=== PATIENT | male | born 1995 | race African-American/Black ===

== ENCOUNTER 2022-06-04 11:05 | Inpatient (IN) | payer MEDICAID, SELFPAY ==
[2022-06-04] VITALS (27 sets, daily range): BP systolic 99–146; BP diastolic 45–95; PULSE 57–128; RESP 16–39; TEMP 36.1–39.1; O2SAT 92–100; BMI 22.9
--- NOTE | ~2022-06-04 | XR_ITS ---
XR chest 2V 06/08/2022 10:51 Indication: Pneumonia follow-up Procedure: AP and lateral views of the chest Comparison: 06/04/2022 Findings: Significant improvement of bilateral airspace disease. There is residual left perihilar inf iltrates. No pleural effusion or pneumothorax. No acute osseous abnormality. Right lung clear. Impression: 1: Near-complete resolution of bilateral perihilar airspace disease, likely resolving pneumonia or ed juancho. Reviewed, dictated and finalized at location A. Impression: 1: Near-complete resolution of bilateral perihilar airspace disease, likely res olving pneumonia or edema.
--- NOTE | ~2022-06-04 | XR_ITS ---
Portable chest x-ray Comparison: None Clinical History: Shortness of breath Findings: There is mild groundglass pulmonary disease probably centrally/in the perihilar regions. N o pleural effusion or pneumothorax. Cardiomediastinal silhouette is stable. Bones and soft tissues a re unremarkable. Impression: Mild central groundglass pulmonary disease. Correlate for atypical infection. Pulmonary edema less li huy given patient age. Reviewed, dictated and finalized at location . Impression: Mild central groundglass pulmonary disease. Correlate for atypical infection. P ulmonary edema less likely given patient age.
--- NOTE | ~2022-06-04 | CT_ITS ---
EXAMINATION: CTA chest PE protocol DATE: 06/04/2022 14:26 INDICATION: Tachycardia. Shortness of breath. TECHNIQUE: Computed tomography angiography (CTA) of the chest was performed with 100 mL Omnipaque-350 intravenous contrast timed to evaluate the pulmonary arteries. Coronal maximum intensity projection 3D-reconstructions were created by the technologist. Automated exposure control and iterative reconst ruction technique were employed. The dose-length product was 258.34 mGy-cm. COMPARISON: Chest single view 06/04/2022 FINDINGS: There are groundglass opacities in all lobes. There are airspace opacities in the lower lob es and lingula. No pleural effusion. The heart size is normal. No pericardial effusion. There is no p ulmonary embolus. The bones are unremarkable. IMPRESSION: 1. No pulmonary embolus. 2. Diffuse lung disease, consistent with atypical pneumonia versus pulmonary edema. Reviewed, dictated and finalized at location A. IMPRESSION: 1. No pulmonary embolus. 2. Diffuse lung disease, consistent with atypical pneumonia versus pulmonary ed juancho.
--- NOTE | 2022-06-04 11:51 | ECG_ITS ---
Measurements Intervals [place] Rate: 122 P: 56 NH: 164 QRS: 55 QRSD: 89 T: 37 QT: 283 QTc: 404 Interpretive Statements SINUS TACHYCARDIA ABNORMAL ECG NO PREVIOUS ECG AVAILABLE FOR COMPARISON Electronically Signed On 06-04-2022 12:52:23 CDT by Danial Schumacher D.O.
--- NOTE | 2022-06-04 12:04 | PC.NURSE ---
Patient from walking to the wheelchair to the bed was 84% on room air. Patient placed on 4L and is currently 96%.
[2022-06-04 12:38] LABS: Basophils Percent Auto 0.2 % (0.2-1.2); Hemoglobin 11.2 g/dL (14.0-18.0); Immature Granulocyte Absolute 0.03 K/mm3 (0.00-0.031); Immature Granulocyte Percent A 0.3 % (0-0.5); Lymphocytes Absolute Auto 2.64 K/mm3 (0.9-3.2); Lymphocytes Percent Auto 29.3 % (18.3-44.2); Mean Corpuscular HGB Conc 33.9 g/dl (32-36); Mean Corpuscular Hemoglobin 25.9 pg (26-34); Mean Corpuscular Volume 76.2 fl (80-100); Mean Platelet Volume 9.6 fl (7.4-10.4); Monocytes Absolute Auto 0.3 K/mm3 (0.1-0.6); Monocytes Percent Auto 3.4 % (2.6-8.5); Neutrophils Percent Auto 66.8 % (45.5-73.1); Platelet Count Result 396 k/mm3 (150-375); Red Blood Count 4.33 M/mm3 (4.6-6.20); Red Cell Distribution Width 13.4 % (11.5-14.5)
[2022-06-04 12:44] LABS: Target Cells 1+ (NORMAL)
[2022-06-04 12:45] LABS: Schistocytes None Seen (NORMAL); Stomatocytes 1+ (NORMAL)
[2022-06-04 12:47] LABS: Alanine Aminotransferase 23 U/L (6-50); Alkaline Phosphatase 57 U/L (38-126); Anion Gap 8 mmol/L (8-16); Aspartate Amino Transferase 77 U/L (17-59); Bilirubin,Total 1.2 mg/dL (0.2-1.3); Blood Urea Nitrogen 14 mg/dL (9-20); Calcium 8.8 mg/dL (8.4-10.2); Carbon Dioxide 23 mmol/L (22-30); Chloride 97 mmol/L (98-107); Estimated CRCL calculation 108 ml/min; Estimated Glomerular Filt Rate > 60; Glucose 98 mg/dL (65-110); Potassium 3.6 mmol/L (3.4-5.0); Sodium 128 mmol/L (137-145)
[2022-06-04] MEDS: SODIUM CHLORIDE 0.9% IV 1,000 ML 999 ML IV CONT (12:51)
--- NOTE | 2022-06-04 13:05 | ED.SOB ---
HPI - SOB/Dyspnea General Chief Complaint: Shortness of Breath/Dyspnea <Violeta Saldaña MD - Last Filed: 06/08/22 15:29> Stated Complaint: SOB <Violeta Saldaña MD - Last Filed: 06/08/22 15:29> Time Seen by Provider: 06/04/22 12:09 <Violeta Saldaña MD - Last Filed: 06/08/22 15:29> History of Present Illness HPI Narrative: Patient is a 27-year-old male presenting with shortness of breath. Patient states that for the last 3 weeks he has had increasingly progressive shortness of breath with cough. He states it hurts to take a big breath. States he is concerned that he is dehydrated. He has been unable to drink much. States that he gets very short of breath just walking to his bathroom. Also reports several weeks of diarrhea. No vomiting. No abdominal pain, dysuria, leg swelling, numbness or weakness, headaches. <Violeta Saldaña MD - Last Filed: 06/08/22 15:29> Patient is a 27-year-old male presenting with shortness of breath. Patient states that for the last 3 weeks he has had increasingly progressive shortness of breath with cough. He states it hurts to take a big breath. States he is concerned that he is dehydrated. He has been unable to drink much. States that he gets very short of breath just walking to his bathroom. Also reports several weeks of diarrhea. No vomiting. No abdominal pain, dysuria, leg swelling, numbness or weakness, headaches. <Nohemi Schultz PA-C - Last Filed: 06/04/22 17:12> Related Data Home Medications: Home Medications Medication Instructions Recorded Confirmed No Home Medications 06/04/22 06/04/22 <Violeta Saldaña MD - Last Filed: 06/08/22 15:29> Allergies/Adverse Reactions: Allergies Allergy/AdvReac Type Severity Reaction Status Date / Time No Known Allergies Allergy Verified 06/04/22 12:33 <Violeta Saldaña MD - Last Filed: 06/08/22 15:29> Review of Systems Review of Systems: All systems reviewed & are unremarkable except as noted in HPI and below <Violeta Saldaña MD - Last Filed: 06/08/22 15:29> [facility] Past Medical History Medical History: Medical History (Updated 06/08/22 @ 14:11 by Violeta Saldaña MD) No significant past medical history <Violeta Saldaña MD - Last Filed: 06/08/22 15:29> Surgical History Surgical History: Surgical History (Updated 06/05/22 @ 00:04 by Nohemi Schultz PA-C) No history of previous surgery <Violeta Saldaña MD - Last Filed: 06/08/22 15:29> Family History Family History: Family History Other Family history non-contributory <Violeta Saldaña MD - Last Filed: 06/08/22 15:29> Social History Social History: Social History (Updated 06/05/22 @ 00:05 by Nohemi Schultz PA-C) Social History: Surrogate medical decision maker: Sumit Gonzales, sister. Code status: Full code. Smoking status: Current some day smoker Additional smoking assessment comments: Smokes a few cigarettes a day. Alcohol intake: never Substance use: never Substance use type: does not use Lack of Transportation: YES Lack of Food: Never True Current Housing: I Have Housing Concerned About Future Housing: No Difficulty Paying Gas/Electric Bills: No Difficulty Paying for Meds: No Currently Unemployed: No Education: High School Diploma/GED Difficulty w/ Childcare or Family Care: No Additional living arrangements comments: Lives with sister and her family in the [facility]. 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 Spiritual care concerns: No <Violeta Saldaña MD - Last Filed: 06/08/22 15:29> Exam Narrative: GENERAL: ill appearing, in no acute distress, very pleasant and cooperative HEAD: Normocephalic, atraumatic. EYES: PERRLA and EOMI. ENT: Nares clear, no rhinorrhea or epistaxis. Mucous membranes dry NECK: Supple. CHEST: cr
[2022-06-04] MEDS: PIPERACILLIN/TAZOBACTAM SOD 4.5 GM in SODIUM CHLORIDE 0.9% IV 100 ML 200 ML IVPB (13:15)
--- NOTE | 2022-06-04 13:19 | PC.NURSE ---
Patient asked if this RN could call his boss and gave verbal permission to give information about patient being at hospital.
--- NOTE | 2022-06-04 13:34 | PC.NURSE ---
Patient weaned down to 2L O2 via nasal canula. patient o2 sat at 98%
[2022-06-04 14:06] LABS: Troponin I < 0.012 ng/mL (0.000-0.034)
[2022-06-04 14:09] LABS: Lactic Acid Reflex 1.2 mmol/L (0.7-2.0)
[2022-06-04 14:39] LABS: Influenza A QL RT-PCR Negative (Negative); Influenza B QL RT-PCR Negative (Negative); SARS-CoV-2 RNA PCR Negative
--- NOTE | 2022-06-04 15:02 | PC.NURSE ---
patient given a sandwich and water per verbal from Dr Saldaña
[2022-06-04 15:27] LABS: Appearance Urine Clear (Clear); Bacteria Urine None Seen /hpf; Bilirubin Urine Negative (Negative); Blood Urine Negative (Negative); Color Urine Yellow (Yellow); Glucose Urine UA Negative (Negative); Ketones Urine Negative (Negative); Leukocyte Esterase Ur Negative LEU/UL (Negative); Need Manual Microscopic Reviewed; Nitrate Urine Negative (Negative); Non Pathogenic Casts 0-2; Protein Urine 1+ mg/dL (Negative); RBC Urine 0-2 /hpf (0-2); Squamous Epithelial Cell Urine None seen /hpf (Few); Urobilinogen Urine 0.2 mg/dL (<2.0); WBC Urine 0-5 /hpf
[2022-06-04 15:29] LABS: Add Urine Microscopic? YES; Specific Grav Ur 1.042 (1.001-1.035)
[2022-06-04 16:27] LABS: Troponin I < 0.012 ng/mL (0.000-0.034)
--- NOTE | 2022-06-04 17:15 | PM.IMHP ---
H&P: HPI History of Present Illness Date/Time: 06/04/22 17:15 Chief Complaint: Cough and shortness of breath. Narrative: This is a pleasant, previously healthy 27-year-old male who presented to the emergency department via private vehicle for evaluation of cough and shortness of breath. Patient provides the following history. He has not been feeling well for 3 weeks with cough productive of clear phlegm, pleuritic chest pain, dyspnea on exertion, decreased appetite, nausea, and diarrhea. He has lost about 10 lb in the last several weeks due to poor oral intake. He denies sweats, chills, did not think he had a fever though his temperature was 102.3? on arrival to the ED. He has no known sick contacts and he denies recent travel. He lives in a home with 4 other family members, none of whom are sick. He denies pet exposures and drinks city water. He has not noticed blood or mucus in the stool. He denies vomiting. He has no known exposure to HIV and he has not been sexually active for several years. Prior to that he was in a sexually relationship with a male. He was febrile on arrival as detailed above. With ambulation his SpO2 dropped to the low 80s and he is currently on 3 L nasal cannula. Pertinent labs include a WBC count of 9.0, hemoglobin 11.2, hematocrit 33.0, MCV 76.2, sodium 128, potassium 3.6, chloride 97, BUN 14, creatinine 1.00, lactic acid 1.2, total bilirubin 1.2, AST 77, ALT 23, alkaline phosphatase 57. He was negative for influenza and COVID. Chest x-ray shows findings of possible atypical infection. CTA of the chest showed no evidence of PE but did note diffuse lung disease consistent with atypical pneumonia versus pulmonary edema. He is being admitted in this setting for further treatment and evaluation. Review of Systems Review of Systems: Twelve systems were reviewed and are negative except for as per HPI. [facility] Past Medical History Medical History (Updated 06/05/22 @ 00:10 by Nohemi Schultz PA-C) No significant past medical history Surgical History Surgical History (Updated 06/05/22 @ 00:04 by Nohemi Schultz PA-C) No history of previous surgery Family History Family History Other Family history non-contributory Social History Social History (Updated 06/05/22 @ 00:05 by Nohemi Schultz PA-C) Social History: Surrogate medical decision maker: Sumit Gonzales, sister. Code status: Full code. Smoking status: Current some day smoker Additional smoking assessment comments: Smokes a few cigarettes a day. Alcohol intake: never Substance use: never Substance use type: does not use Lack of Transportation: YES Lack of Food: Never True Current Housing: I Have Housing Concerned About Future Housing: No Difficulty Paying Gas/Electric Bills: No Difficulty Paying for Meds: No Currently Unemployed: No Education: High School Diploma/GED Difficulty w/ Childcare or Family Care: No Additional living arrangements comments: Lives with sister and her family in the [facility]. 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 Spiritual care concerns: No Meds Home Medications and Allergies Home Medications Medication Instructions Recorded Confirmed Type No Home Medications 06/04/22 06/04/22 History Allergies Allergy/AdvReac Type Severity Reaction Status Date / Time No Known Allergies Allergy Verified 06/04/22 12:33 Vital Signs Vital Signs - 24 hr 06/04/22 11:52 06/04/22 12:04 06/04/22 12:05 Temperature 102.3 F H Pulse Rate 94 119 H 121 H Respiratory Rate 20 27 H 23 H Blood Pressure 133/82 146/95 H Pulse Oximetry 94 97 97 Oxygen Delivery Room Air Oxygen Flow Rate 06/04/22 12:15 06/04/22 12:24 06/04/22 12:25 Temperature Pulse Rate 123 H 128 H 128 H Respiratory Rate 30 H 31 H Blood Pressure 144/89 H Pulse Oximetry 96 96 Oxygen Delivery Oxygen Flow
--- NOTE | 2022-06-04 17:51 | PC.NURSE ---
This patient, Jitendra Camarillo, was admitted to [facility] Surg Room 309-01. Patient/family oriented to hospital policies and general routines including ID bracelet, bed and alarms, visiting hours, pain management, procedures, bathroom and other care routines, personal items, smoking policy, room service/diet, and visiting hours. Information on how to activate the Rapid Response Team has been discussed. Patient/Family are encouraged to report perceived risks to care and to ask questions if they do not understand what they are told or what they should do.
[2022-06-04 18:57] LABS: Immature Reticulocyte Fraction 8.4 % (3.0-15.9); Reticulocyte Hemoglobin Conten 25.8 pg (28.2-35.7); Reticulocytes Absolute 0.03 B/L (32.2-175.7)
[2022-06-04 19:27] LABS: Troponin I < 0.012 ng/mL (0.000-0.034)
[2022-06-04 20:45] LABS: Folic Acid 6.4 ng/mL (2.76->20)
[2022-06-04 21:39] LABS: HAV RESULT Negative (Negative); Hepatitis B Core IgM Result Negative (Negative); Hepatitis B Surface Antigen Negative (Negative)
[2022-06-04 21:51] LABS: Hepatitis C Virus Antibody Negative (Negative)
[2022-06-04 22:03] LABS: Iron 21 ug/dL (49-181); Percent Iron Saturation 9 % (20-50)
[2022-06-04 22:28] LABS: HIV 1/2 Ab P24 Ag 263; HIV 1/2 Ab P24 Ag Result Reactive (Negative)
[2022-06-04 23:20] LABS: HIVc Retest 1 257
[2022-06-04 23:34] LABS: HIVc Retest 2 248
[2022-06-05 00:21] LABS: Free T4 Free Thyroxine Reflex 1.01 ng/dL (0.78-2.19)
[2022-06-05 01:21] LABS: Total Triiodothyronine (T3) 0.72 NG/ML (0.97-1.69)
[2022-06-05 06:00] VITALS: BP 97/53; PULSE 103; RESP 18; TEMP 37.6; O2SAT 92
[2022-06-05 06:41] LABS: Hematocrit 27.8 % (42.0-52.0); Hemoglobin 9.7 g/dL (14.0-18.0); Mean Corpuscular HGB Conc 34.9 g/dl (32-36); Mean Corpuscular Hemoglobin 26.2 pg (26-34); Mean Corpuscular Volume 75.1 fl (80-100); Mean Platelet Volume 9.8 fl (7.4-10.4); Platelet Count Result 342 k/mm3 (150-375); Red Cell Distribution Width 13.3 % (11.5-14.5); White Blood Count 6.2 K/mm3 (4.5-10.0)
[2022-06-05 07:08] LABS: Alanine Aminotransferase 18 U/L (6-50); Albumin Level 3.3 g/dL (3.5-5.1); Alkaline Phosphatase 44 U/L (38-126); Anion Gap 4 mmol/L (8-16); Aspartate Amino Transferase 60 U/L (17-59); Bilirubin,Total 0.8 mg/dL (0.2-1.3); Blood Urea Nitrogen 7 mg/dL (9-20); Calcium 7.8 mg/dL (8.4-10.2); Carbon Dioxide 22 mmol/L (22-30); Chloride 98 mmol/L (98-107); Estimated CRCL calculation 139 ml/min; Estimated Glomerular Filt Rate > 60; Glucose 83 mg/dL (65-110); Magnesium 1.8 mg/dL (1.6-2.3); Potassium 3.3 mmol/L (3.4-5.0); Sodium 124 mmol/L (137-145)
[2022-06-05 13:16] VITALS: BMI 23.4
[2022-06-05 14:00] VITALS: BP 122/70; PULSE 103; RESP 30; TEMP 37.3; O2SAT 94
--- NOTE | 2022-06-05 15:51 | PM.IMPN ---
Progress Note: A&P Assessment and Plan (1) Sepsis: Code(s): A41.9 - Sepsis, unspecified organism Status: Acute Assessment and Plan: Present on admission with tachycardia, fever and hypoxia related to pneumonia. Fever curve has improved. Tachycardia has improved as well. Tachycardia also may have been related in part to dehydration. Continue treatment as mentioned below. (2) Multifocal pneumonia: Code(s): J18.9 - Pneumonia, unspecified organism Status: Acute Assessment and Plan: The patient presents with cough and shortness of breath. CTA chest showing diffuse disease worse in the LLL. Doubt pulmonary edema and clinically more indicative for infectious etiology. Rocephin and Azithr started. Advance Rocephin to 2gm daily. HIV Ab positive so Bactrim IV added. Sputum ordered. BCx NGTD. He feels better. Concern for PJP is high so will add Prednisone per guidelines. Pulmonary consult. (3) HIV antibody positive: Code(s): Z21 - Asymptomatic human immunodeficiency virus [HIV] infection status Status: Acute Assessment and Plan: HIV antibodies positive. Confirmatory test pending. Follow up on final results. Patient was informed. Hepatitis panel negative. Check RPR. (4) Hypoxia: Code(s): R09.02 - Hypoxemia Status: Acute Assessment and Plan: Patient hypoxic on admission. Related to atypical pneumonia. Wean O2 as tolerated. (5) Hyponatremia: Code(s): E87.1 - Hypo-osmolality and hyponatremia Status: Acute Assessment and Plan: Na 128 that has dropped to 124. Probably SIADH from his lung disease. Could also be dehydrated. Will check urine Na. (6) Microcytic anemia: Code(s): D50.9 - Iron deficiency anemia, unspecified Status: Acute Assessment and Plan: Iron studies noted. B12 level low end of normal. B12 IM once. Hgb low but stable. Follow (7) Dehydration: Code(s): E86.0 - Dehydration Status: Acute Assessment and Plan: As above. Start IV fluids if Urine na low. Subjective Date/time seen: 06/05/22 15:51 Interval history: 27yo healthy male here for couagh and SOB and found to have PNA with hypoxia. HIV screen was positive. He is now having hemoptysis. No chest pain but does hurt to take a deep breath. SOB much better. Cough improved. No pedal edema or calf pain. Exam Narrative: Tm 102.3 99.6 97/53 103 18 92% 4L Gen - NARD Chest - diffuse inspiratory crackles, nml RR CV - RRR S1/S2 Abd - Soft, NT/ND, Positive BS Ext - No pedal edema Psych - Nml mood and affect Skin - Warm and dry. tinea pedis Objective Data Vital Signs Vital Signs: Vital Signs - 24 hr 06/04/22 18:01 06/04/22 17:30 06/04/22 21:16 Temperature 97.5 F L 96.9 F L Pulse Rate 85 57 L Respiratory Rate 22 H 16 Blood Pressure 99/63 L 102/58 L Pulse Oximetry 95 96 92 Oxygen Delivery Nasal Cannula Oxygen Flow Rate 4 06/05/22 06:00 Temperature 99.6 F Pulse Rate 103 H Respiratory Rate 18 Blood Pressure 97/53 L Pulse Oximetry 92 Oxygen Delivery Oxygen Flow Rate Intake/Output Intake/Output: Intake & Output 06/02/22 06/03/22 06/04/22 06/05/22 23:59 23:59 23:59 23:59 Intake Total 2190 4183.2 Output Total 900 Balance 2190 3283.2 Meds/Results Medications: Active Medications Generic Name Dose Route Start Last Admin Trade Name Freq PRN Reason Stop Dose Admin Acetaminophen 650 mg 06/05/22 00:12 Acetaminophen 325 Mg Tablet PO Q6H PRN Mild Pain (1-3) or Fever Hydrocodone Bitart/Acetaminophen 1 tab 06/05/22 00:12 Hydrocodone/Acetaminophen (*Crx) 5-325 Mg Tablet PO Q6H PRN Pain Rated 4-6 Albuterol 2 puff 06/05/22 00:12 Albuterol Sulfate (*Sp) Aerosol 1 Puff INHALATION QIDRT PRN Shortness Of Breath Trimethoprim/Sulfamethoxazole 516.6 mls @ 258.3 mls/hr 06/05/22 00:35 06/05/22 12:39 16.6 ml/ Dext
[2022-06-05] MEDS: CYANOCOBALAMIN INJ 1,000 MCG/ML VIAL 1000 MCG IM (17:07)
[2022-06-05] MEDS: POTASSIUM CHLORIDE 20 MEQ TABLET 40 MEQ PO (17:07)
--- NOTE | 2022-06-05 17:10 | PM.CNPUL ---
Assessment and Plan Assessment and plan (1) AIDS (acquired immune deficiency syndrome): Code(s): B20 - Human immunodeficiency virus [HIV] disease Status: Acute Assessment and Plan: He has had HIV 5 years, has diffuse pneumonia, and treatment has been expanded to cover Pneumocystis jiroveci as well as the usual organisms that everyone gets- Strep, H flu, Moraxella, Mycoplasma; he has O2 requirement, so the steroids will help. Continue O2, tobacco cessation; he smokes so little, may be more psychological than physiological addition. He is not having tobacco withdrawal symptoms. Bronchodilators. Urine antigens are pending. I don't have anything to add at this point. (2) Multifocal pneumonia: Code(s): J18.9 - Pneumonia, unspecified organism Status: Acute Assessment and Plan: see above. History of Present Illness History of Present Illness Consult date: 06/05/22 Requesting physician: Raul Huerta MD Chief complaint: Pneumonia Narrative: NEW CONSULT: Jitendra Camarillo is a 27-year-old man admitted with fever, cough and shortness of breath. His temperature in the ED was 102.3?. He has had HIV for 5 years, not on treatment. He has had a month of cough, shortness of breath with chest discomfort with exertion. He developed diarrhea 2 weeks ago. He has had nasal congestion, thick white sputum. He denies wt loss, hx of thrush, hx of pneumonias or respiratory infections, hemoptysis. He has not been admitted to a hospital since his diagnosis of HIV. HIs HIV screen was positive, confirmatory test sent, but says he has been positive for 5 years. WBC was 6.2 normal, has anemia, H/H 9.7/27.8. MCV 75. CD4 pending. With the (+) HIV, antibiotic coverage was extended with IV Bactrim in addition to Rocephin He has no intimate partner at present, says that he stays to himself. He has not been treated for HIV, did not know where to go. 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 Tobacco: He smokes 2 cigarettes a day, started 2 years ago. Lives with his sister Paul. He is the ninth of 17 children, both parents are alive, [employer]. Mother has asthma. FH: Mother has asthma. DATA * 06/04/2022 CXR Mild central groundglass pulmonary disease. Correlate for atypical infection. Pulmonary edema less likely given patient age. * 06/04/2022 CTA : No pulmonary embolus. Diffuse lung disease, consistent with atypical pneumonia versus pulmonary edema. He has most of his infiltrate in the LLL. Review of Systems Review of Systems: All systems reviewed & are unremarkable except as noted in HPI and below [facility] Past Medical History Medical History (Updated 06/05/22 @ 17:57 by Caty Blanco MD) No significant past medical history Surgical History Surgical History (Updated 06/05/22 @ 00:04 by Nohemi Schultz PA-C) No history of previous surgery Family History Family History Other Family history non-contributory Social History Social History (Updated 06/05/22 @ 00:05 by Nohemi Schlutz PA-C) Social History: Surrogate medical decision maker: Sumit Gonzales, sister. Code status: Full code. Smoking status: Current some day smoker Additional smoking assessment comments: Smokes a few cigarettes a day. Alcohol intake: never Substance use: never Substance use type: does not use Lack of Transportation: YES Lack of Food: Never True Current Housing: I Have Housing Concerned About Future Housing: No Difficulty Paying Gas/Electric Bills: No Difficulty Paying for Meds: No Currently Unemployed: No Education: High School Diploma/GED Difficulty w/ Childcare or Family Care: No Additional living arrangements comments: Lives with sister and he
[2022-06-05] MEDS: predniSONE 20 MG TABLET 40 MG PO (17:16)
[2022-06-05 19:44] VITALS: PULSE 106; RESP 15
[2022-06-05 19:55] VITALS: PULSE 106; PULSE 110; RESP 15; RESP 18; O2SAT 90
[2022-06-05 20:00] VITALS: PULSE 104; RESP 15; O2SAT 99
[2022-06-05] MEDS: cefTRIAXone 2 GM/NS 100 ML 2 GM/100 ML BAG IVPB (21:06)
[2022-06-05 22:04] LABS: Creatinine Urine 57.7 mg/dL
[2022-06-05 22:05] LABS: Sodium Urine Random 26 meq/L
[2022-06-05 22:08] VITALS: BP 123/68; PULSE 107; RESP 16; TEMP 37.2; O2SAT 99
[2022-06-06] VITALS (16 sets, daily range): BP systolic 111–116; BP diastolic 60–76; PULSE 76–104; RESP 14–18; TEMP 36.1–36.4; O2SAT 90–96
[2022-06-06 06:52] LABS: Hematocrit 30.2 % (42.0-52.0); Hemoglobin 10.3 g/dL (14.0-18.0); Immature Granulocyte Absolute 0.01 K/mm3 (0.00-0.031); Immature Granulocyte Percent A 0.2 % (0-0.5); Lymphocytes Absolute Auto 1.14 K/mm3 (0.9-3.2); Lymphocytes Percent Auto 27.7 % (18.3-44.2); Mean Corpuscular HGB Conc 34.1 g/dl (32-36); Mean Corpuscular Hemoglobin 25.6 pg (26-34); Mean Corpuscular Volume 75.1 fl (80-100); Mean Platelet Volume 9.4 fl (7.4-10.4); Monocytes Absolute Auto 0.1 K/mm3 (0.1-0.6); Monocytes Percent Auto 2.7 % (2.6-8.5); Neutrophils Absolute Auto 2.9 K/mm3 (1.3-6.7); Neutrophils Percent Auto 69.4 % (45.5-73.1); Platelet Count Result 388 k/mm3 (150-375); Red Blood Count 4.02 M/mm3 (4.6-6.20); Red Cell Distribution Width 13.4 % (11.5-14.5); White Blood Count 4.1 K/mm3 (4.5-10.0)
[2022-06-06 07:14] LABS: Alanine Aminotransferase 21 U/L (6-50); Albumin Level 3.4 g/dL (3.5-5.1); Alkaline Phosphatase 47 U/L (38-126); Anion Gap 4 mmol/L (8-16); Aspartate Amino Transferase 70 U/L (17-59); Bilirubin,Total 0.6 mg/dL (0.2-1.3); Blood Urea Nitrogen 6 mg/dL (9-20); CRP 6.6 mg/dL (<1.0); Calcium 8.4 mg/dL (8.4-10.2); Carbon Dioxide 25 mmol/L (22-30); Chloride 105 mmol/L (98-107); Estimated CRCL calculation 123 ml/min; Estimated Glomerular Filt Rate > 60; Glucose 130 mg/dL (65-110); Potassium 3.7 mmol/L (3.4-5.0); Sodium 134 mmol/L (137-145)
[2022-06-06 07:25] LABS: Monoscreen Negative (Negative); Negative Monotest Control Negative (Negative); Positive Monotest Control Positive (Positive)
[2022-06-06] MEDS: predniSONE 20 MG TABLET 40 MG PO ×2 (08:54→17:30)
[2022-06-06] MEDS: CYANOCOBALAMIN 1,000 MCG TABLET 1000 MCG PO (08:54)
--- NOTE | 2022-06-06 10:52 | PM.IMPN ---
Progress Note: A&P Assessment and Plan (1) Sepsis: Code(s): A41.9 - Sepsis, unspecified organism Status: Acute Assessment and Plan: Present on admission with tachycardia, fever and hypoxia related to pneumonia. Fever has resolved. Tachycardia has improved as well. Sepsis symptoms resolving. Continue treatment as mentioned below. (2) Multifocal pneumonia: Code(s): J18.9 - Pneumonia, unspecified organism Status: Acute Assessment and Plan: The patient presents with cough and shortness of breath. CTA chest showing diffuse lung disease worse in the LLL. Doubt pulmonary edema and clinically more indicative for infectious etiology. Rocephin and Azithro started. HIV positive so Bactrim IV added. Sputum pending. BCx NGTD. He feels better and O2 requirement improved. Concern for PJP is high so will add Prednisone per guidelines. Pulmonary consult. Contineu current treatment plan. (3) HIV antibody positive: Code(s): Z21 - Asymptomatic human immunodeficiency virus [HIV] infection status Status: Acute Assessment and Plan: patient admits that he is HIV positive. He has not undergone treatment. CD4 count pending. Hepatitis panel negative. RPR pending. he will need to follow-up with [facility] after discharge. (4) Hypoxia: Code(s): R09.02 - Hypoxemia Status: Acute Assessment and Plan: Patient hypoxic on admission. Related to atypical pneumonia. Better. Wean O2 as tolerated. (5) Hyponatremia: Code(s): E87.1 - Hypo-osmolality and hyponatremia Status: Acute Assessment and Plan: Na 128 that has dropped to 124. Probably related to dehydration. Urine Na 26 with low FENa. Serum Na better at 134 related to him self-hydrating. 10 points in 24 hours probably okay. Push free water. Will monitor. (6) Microcytic anemia: Code(s): D50.9 - Iron deficiency anemia, unspecified Status: Acute Assessment and Plan: Iron studies noted. B12 level low end of normal. B12 IM once. Hgb low but stable. Continue oral b12. Follow (7) Dehydration: Code(s): E86.0 - Dehydration Status: Acute Assessment and Plan: Resolving. He is eating well. Follow Subjective Date/time seen: 06/06/22 10:52 Interval history: 27yo healthy male here for couagh and SOB and found to have PNA with hypoxia. HIV screen was positive. Feeling much better. No further hemoptysis.No pain with coughing. Sputum clear. Eating okay. He does admit now that he is HIV+ and was diagnosed about 5 years ago. He has not been on treatment. Exam Narrative: AF 97.0 111/73 82 17 94% 1L Gen - NARD Chest - bilateral lower lung field inspiratory crackles, nml RR CV - RRR S1/S2 Abd - Soft, NT/ND, Positive BS Ext - No pedal edema Psych - Nml mood and affect Skin - Warm and dry. tinea pedis. dried slightly raised patch right lateral thigh Objective Data Vital Signs Vital Signs: Vital Signs - 24 hr 06/05/22 14:00 06/05/22 19:44 06/05/22 19:55 Temperature 99.1 F Pulse Rate 103 H 106 H 110 H Respiratory Rate 30 H 15 15 Blood Pressure 122/70 Pulse Oximetry 94 Oxygen Delivery Oxygen Flow Rate Fraction of Inspired Oxygen 06/05/22 19:55 06/05/22 22:08 06/06/22 01:47 Temperature 98.9 F Pulse Rate 106 H 107 H 102 H Respiratory Rate 18 16 16 Blood Pressure 123/68 Pulse Oximetry 90 99 Oxygen Delivery Nasal Cannula Oxygen Flow Rate 3 Fraction of Inspired Oxygen 32 06/06/22 01:53 06/05/22 20:00 06/06/22 04:39 Temperature 97.0 F L Pulse Rate 104 H 104 H 83 Respiratory Rate 15 15 18 Blood Pressure 111/73 Pulse Oximetry 99 96 Oxygen Delivery Nasal Cannula Oxygen Flow Rate 3 Fraction of Inspired Oxygen 32 06/06/22 07:58 06/06/22 07:55 06/06/22 08:15 Temperature Pulse Rate 77 82 Respiratory Rate 17 17 Blood Pressure Pulse Oximetry 94 Oxygen Delivery Nasal Cannula O
[2022-06-06] MEDS: ENOXAPARIN 40 MG/0.4 ML SYRINGE SUB-Q (11:38)
--- NOTE | 2022-06-06 13:30 | PM.PNPUL ---
Progress Note: A&P Assessment and Plan (1) AIDS (acquired immune deficiency syndrome): Code(s): B20 - Human immunodeficiency virus [HIV] disease Status: Acute Assessment and Plan: He has had HIV 5 years, has diffuse pneumonia, and treatment has been expanded to cover Pneumocystis jiroveci as well as the usual organisms that everyone gets- Strep, H flu, Moraxella, Mycoplasma; he has O2 requirement, so the steroids will help. Continue O2, tobacco cessation; he smokes so little, may be more psychological than physiological addition. He is not having tobacco withdrawal symptoms. Bronchodilators. Urine antigens are pending. I don't have anything to add at this point. (2) Multifocal pneumonia: Code(s): J18.9 - Pneumonia, unspecified organism Status: Acute Assessment and Plan: see above. Subjective Date/time seen: 06/06/22 13:30 Interval history: Hospital follow up: 27-year-old man admitted with fever, cough and shortness of breath. His temperature in the ED was 102.3?. He has had HIV for 5 years, not on treatment. He has had a month of cough, shortness of breath with chest discomfort with exertion. He developed diarrhea 2 weeks ago. He has had nasal congestion, thick white sputum. He denies wt loss, hx of thrush, hx of pneumonias or respiratory infections, hemoptysis. He has not been admitted to a hospital since his diagnosis of HIV.? HIs HIV screen was positive, confirmatory test sent, but says he has been positive for 5 years. WBC was 6.2 normal, has anemia, H/H 9.7/27.8. MCV 75. CD4 pending. With the (+) HIV, antibiotic coverage was extended with IV Bactrim in addition to Rocephin. He has no intimate partner at present, says that he stays to himself.? He has not been treated for HIV, did not know where to go. 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 Tobacco: He smokes 2 cigarettes a day, started 2 years ago. Lives with his sister Paul. He is the ninth of 17 children, both parents are alive, [facility]. Mother has asthma. FH: Mother has asthma. 06/06/22 O2 need improved, weaned to 1 L/min. DATA * 06/04/2022 CXR??Mild central groundglass pulmonary disease. Correlate for atypical infection. Pulmonary edema less likely given patient age. *? 06/04/2022? CTA : No pulmonary embolus. ? Diffuse lung disease, consistent with atypical pneumonia versus pulmonary edema. He has most of his infiltrate in the LLL. Exam Narrative: GEN: Alert, oriented, not in distress. He is on 4 L/min. HEENT: pupils are equal, EOMI, symmetrical face; oral membranes moist, missing 2 upper teeth from a skateboard accident 2018. Mallampati II airway. White coating on tongue. NECK: Trachea is midline CHEST: Equal air entry, symmetric excursion, crackles diffusely bilaterally. No wheezes. CV: Regular S1S2 no m/g/r ABD : (+) bowel sounds Extremities : no clubbing; he has a patch of white raised plaque over right lateral thigh about 5 cm, not pruritic. No edema. No skin lesions to suggest Kaposi sarcoma. Dry white tinea soles of feet and toes. PSYCH: normal thought and speech Objective Data Vital Signs Vital Signs: Vital Signs - 24 hr 06/05/22 14:00 06/05/22 19:44 06/05/22 19:55 Temperature 37.3 C Pulse Rate 103 H 106 H 110 H Respiratory Rate 30 H 15 15 Blood Pressure 122/70 Pulse Oximetry 94 Oxygen Delivery Oxygen Flow Rate Fraction of Inspired Oxygen 06/05/22 19:55 06/05/22 22:08 06/06/22 01:47 Temperature 37.2 C Pulse Rate 106 H 107 H 102 H Respiratory Rate 18 16 16 Blood Pressure 123/68 Pulse Oximetry 90 99 Oxygen Delivery Nasal Cannula Oxygen Flow Rate 3 Fraction of Inspired Oxygen 32 06/06/22 01:53 06/05/22 20:00 06/06/22 04:39 Temperature 36.1 C L Pulse Rate 104 H 104 H 83 Resp
[2022-06-06 15:56] LABS: Rapid Plasma Reagin Reactive (NonReactive)
[2022-06-06] MEDS: cefTRIAXone 2 GM/NS 100 ML 2 GM/100 ML BAG IVPB (20:01)
[2022-06-07] VITALS (13 sets, daily range): BP systolic 117–125; BP diastolic 68–72; PULSE 75–101; RESP 14–18; TEMP 36.3–36.6; O2SAT 91–97
[2022-06-07 04:01] LABS: Legionella pneumophila Ag Ur Not Detected (Not Detected)
[2022-06-07 07:29] LABS: Basophils Percent Auto 0.2 % (0.2-1.2); Hematocrit 29.2 % (42.0-52.0); Hemoglobin 10.1 g/dL (14.0-18.0); Immature Granulocyte Absolute 0.02 K/mm3 (0.00-0.031); Immature Granulocyte Percent A 0.5 % (0-0.5); Lymphocytes Absolute Auto 1.33 K/mm3 (0.9-3.2); Lymphocytes Percent Auto 31.9 % (18.3-44.2); Mean Corpuscular HGB Conc 34.6 g/dl (32-36); Mean Corpuscular Hemoglobin 25.8 pg (26-34); Mean Corpuscular Volume 74.7 fl (80-100); Mean Platelet Volume 9.8 fl (7.4-10.4); Monocytes Absolute Auto 0.2 K/mm3 (0.1-0.6); Neutrophils Absolute Auto 2.6 K/mm3 (1.3-6.7); Neutrophils Percent Auto 62.4 % (45.5-73.1); Platelet Count Result 398 k/mm3 (150-375); Red Blood Count 3.91 M/mm3 (4.6-6.20); Red Cell Distribution Width 13.5 % (11.5-14.5); White Blood Count 4.2 K/mm3 (4.5-10.0)
[2022-06-07] MEDS: CYANOCOBALAMIN 1,000 MCG TABLET 1000 MCG PO (09:02)
[2022-06-07] MEDS: ENOXAPARIN 40 MG/0.4 ML SYRINGE SUB-Q (09:03)
[2022-06-07] MEDS: predniSONE 20 MG TABLET 40 MG PO ×2 (09:03→17:16)
[2022-06-07 10:18] LABS: Target Cells 1+ (NORMAL)
[2022-06-07 10:21] LABS: Anisocytosis 1+ (NORMAL); Poikilocytosis 1+ (NORMAL); Schistocytes Rare (NORMAL)
[2022-06-07 10:22] LABS: Hypochromasia 1+ (NORMAL)
--- NOTE | 2022-06-07 10:26 | PM.IMPN ---
Progress Note: A&P Assessment and Plan (1) Sepsis: Code(s): A41.9 - Sepsis, unspecified organism Status: Acute Assessment and Plan: Present on admission with tachycardia, fever and hypoxia related to pneumonia. Fever has resolved. Tachycardia has resolved as well. Sepsis symptoms resolving. Continue treatment as mentioned below. (2) Multifocal pneumonia: Code(s): J18.9 - Pneumonia, unspecified organism Status: Acute Assessment and Plan: The patient presents with cough and shortness of breath. CTA chest showing diffuse lung disease worse in the LLL. Doubt pulmonary edema and clinically more indicative for infectious etiology. Rocephin and Azithro started. HIV positive so Bactrim IV added. Sputum pending. Serologies pending. BCx NGTD. He feels better and O2 requirement improved. Concern for PJP is high so Prednisone added per guidelines. Pulmonary consulted and appreciate their input. Continue current treatment plan. (3) HIV antibody positive: Code(s): Z21 - Asymptomatic human immunodeficiency virus [HIV] infection status Status: Acute Assessment and Plan: patient admits that he is HIV positive. He has not undergone treatment. CD4 count pending. Hepatitis panel negative. RPR positive and confirmatory testing pending. He will need to follow-up with [facility] after discharge. (4) Hypoxia: Code(s): R09.02 - Hypoxemia Status: Acute Assessment and Plan: Patient hypoxic on admission. Related to atypical pneumonia. Better. Wean O2 as tolerated. (5) Hyponatremia: Code(s): E87.1 - Hypo-osmolality and hyponatremia Status: Acute Assessment and Plan: Na 128 that has dropped to 124. Probably related to dehydration. Urine Na 26 with low FENa. Serum Na better at 134 related to him self-hydrating; encouraged to increase free water. Repeat labs pending. Will monitor. (6) Microcytic anemia: Code(s): D50.9 - Iron deficiency anemia, unspecified Status: Acute Assessment and Plan: Iron studies noted. B12 level low end of normal. B12 IM once. Hgb low but stable. Continue oral b12. Follow (7) Dehydration: Code(s): E86.0 - Dehydration Status: Acute Assessment and Plan: Resolving. He is eating well. Follow Subjective Date/time seen: 06/07/22 10:26 Interval history: 27yo healthy male here for cough and SOB and found to have PNA with hypoxia. HIV screen was positive. Patient did have night sweats overnight. No shortness of breath but does have dyspnea on exertion when walking to the bathroom. Still having some mild chest discomfort when he takes deep breaths but is unchanged from yesterday. Still with the persistent cough productive clear sputum again unchanged from yesterday. Exam Narrative: AF 97.6 125/72 86 16 93% 1L Gen - NARD Chest - scattered inspiratory crackles diffusely. Normal respiratory rate CV - RRR S1/S2 Abd - Soft, NT/ND, Positive BS Ext - No pedal edema Psych - Nml mood and affect Skin - Warm and dry. Objective Data Vital Signs Vital Signs: Vital Signs - 24 hr 06/06/22 13:40 06/06/22 13:35 06/06/22 13:59 Temperature Pulse Rate 76 78 Respiratory Rate 16 16 Blood Pressure Pulse Oximetry 92 Oxygen Delivery Nasal Cannula Oxygen Flow Rate 1 06/06/22 14:00 06/06/22 20:40 06/06/22 20:40 Temperature 97.6 F Pulse Rate 80 84 Respiratory Rate 18 16 Blood Pressure 115/76 Pulse Oximetry 96 90 Oxygen Delivery Nasal Cannula Oxygen Flow Rate 1 06/06/22 22:00 06/06/22 20:00 06/07/22 02:25 Temperature 97.1 F L Pulse Rate 89 77 Respiratory Rate 14 16 Blood Pressure 116/60 Pulse Oximetry 93 93 Oxygen Delivery Nasal Cannula Oxygen Flow Rate 1 06/06/22 20:48 06/07/22 02:35 06/07/22 06:00 Temperature 97.6 F Pulse Rate 82 75 88 Respiratory Rate 16 16 14 Blood Pressure 125/72 Pulse Oximetry 92
[2022-06-07 11:48] LABS: Alanine Aminotransferase 27 U/L (6-50); Albumin Level 3.6 g/dL (3.5-5.1); Alkaline Phosphatase 48 U/L (38-126); Anion Gap 8 mmol/L (8-16); Aspartate Amino Transferase 60 U/L (17-59); Bilirubin,Total 0.5 mg/dL (0.2-1.3); Blood Urea Nitrogen 6 mg/dL (9-20); Calcium 8.8 mg/dL (8.4-10.2); Carbon Dioxide 20 mmol/L (22-30); Chloride 107 mmol/L (98-107); Estimated CRCL calculation 156 ml/min; Estimated Glomerular Filt Rate > 60; Glucose 138 mg/dL (65-110); Sodium 135 mmol/L (137-145)
[2022-06-07] MEDS: cefTRIAXone 2 GM/NS 100 ML 2 GM/100 ML BAG IVPB (20:29)
[2022-06-08] VITALS (10 sets, daily range): BP systolic 116–122; BP diastolic 74–83; PULSE 78–87; RESP 18; TEMP 36.1–36.2; O2SAT 92–96
[2022-06-08 07:18] LABS: Basophils Percent Auto 0.2 % (0.2-1.2); Hematocrit 28.2 % (42.0-52.0); Hemoglobin 9.9 g/dL (14.0-18.0); Immature Granulocyte Absolute 0.02 K/mm3 (0.00-0.031); Immature Granulocyte Percent A 0.4 % (0-0.5); Lymphocytes Percent Auto 23.3 % (18.3-44.2); Mean Corpuscular HGB Conc 35.1 g/dl (32-36); Mean Corpuscular Hemoglobin 25.7 pg (26-34); Mean Corpuscular Volume 73.2 fl (80-100); Mean Platelet Volume 10.3 fl (7.4-10.4); Monocytes Absolute Auto 0.3 K/mm3 (0.1-0.6); Neutrophils Percent Auto 71.1 % (45.5-73.1); Nucleated Red Blood Cells Perc 0.4 % (0.0-0.2); Platelet Count Result 476 k/mm3 (150-375); Red Blood Count 3.85 M/mm3 (4.6-6.20); Red Cell Distribution Width 13.4 % (11.5-14.5); White Blood Count 5.6 K/mm3 (4.5-10.0)
[2022-06-08 07:30] LABS: Alanine Aminotransferase 31 U/L (6-50); Albumin Level 3.8 g/dL (3.5-5.1); Alkaline Phosphatase 45 U/L (38-126); Anion Gap 7 mmol/L (8-16); Aspartate Amino Transferase 63 U/L (17-59); Bilirubin,Total 0.5 mg/dL (0.2-1.3); Blood Urea Nitrogen 7 mg/dL (9-20); Calcium 9.1 mg/dL (8.4-10.2); Carbon Dioxide 22 mmol/L (22-30); Chloride 108 mmol/L (98-107); Estimated CRCL calculation 152 ml/min; Estimated Glomerular Filt Rate > 60; Glucose 140 mg/dL (65-110); Phosphorus 4.3 mg/dL (2.5-4.5); Potassium 4.3 mmol/L (3.4-5.0); Sodium 137 mmol/L (137-145)
[2022-06-08] MEDS: CYANOCOBALAMIN 1,000 MCG TABLET 1000 MCG PO (08:41)
[2022-06-08] MEDS: ENOXAPARIN 40 MG/0.4 ML SYRINGE SUB-Q (08:41)
[2022-06-08 10:16] LABS: Absolute CD4 Count 122 cells/uL (490-1740); Lymphocytes, Absolute 1358 cells/uL (850-3900); Percent CD4 Cells 9 % (30-61)
[2022-06-08] MEDS: predniSONE 20 MG TABLET 40 MG PO ×2 (11:15→18:04)
[2022-06-08 15:03] LABS: HIV 1 2 Ag Ab 4th Gen w Rflxs Reactive (Nonreactive); HIV 1 Ab Chg Test Yes; HIV 1 Antibody Positive (Negative); HIV 2 Ab Chg Test Yes; HIV 2 Antibody Negative (Negative)
--- NOTE | 2022-06-08 17:02 | PM.IMPN ---
Progress Note: A&P Assessment and Plan (1) Sepsis: Code(s): A41.9 - Sepsis, unspecified organism Status: Acute Assessment and Plan: Present on admission with tachycardia, fever and hypoxia related to pneumonia. Fever has resolved. Tachycardia has resolved as well. Sepsis symptoms resolving. Continue treatment as mentioned below. (2) Multifocal pneumonia: Code(s): J18.9 - Pneumonia, unspecified organism Status: Acute Assessment and Plan: The patient presents with cough and shortness of breath. CTA chest showing diffuse lung disease worse in the LLL. Doubt pulmonary edema and clinically more indicative for infectious etiology. Rocephin and Azithro started. HIV positive so Bactrim IV added. BCx NGTD. Sputum Cx negative. Stool Cx negative. Sputum for PJP Ag negative. Repeat CXR showing clearing lung loving. Weaned to room air today. Pulmonary consulted and appreciate their input. Continue current treatment plan. Home tomorrow if he remains on room air. (3) HIV antibody positive: Code(s): Z21 - Asymptomatic human immunodeficiency virus [HIV] infection status Status: Acute Assessment and Plan: Patient admits that he is HIV positive. He has not undergone treatment. Hepatitis panel negative. RPR positive and confirmatory testing pending. CD4 count 9% (Nml 30-61%) with absolute CD4 122. He is classified as having AIDS and is at risk for opportunistic infections. Will test for TB. He will need to follow-up with [facility] after discharge. (4) Hypoxia: Code(s): R09.02 - Hypoxemia Status: Acute Assessment and Plan: Patient hypoxic on admission. Related to pneumonia. Better. Follow (5) Hyponatremia: Code(s): E87.1 - Hypo-osmolality and hyponatremia Status: Acute Assessment and Plan: Na 128 that has dropped to 124. Probably related to dehydration. Urine Na 26 with low FENa. Serum Na better at 134 (in 24H) and 135 (in 48H). Na now 137. Will monitor. (6) Microcytic anemia: Code(s): D50.9 - Iron deficiency anemia, unspecified Status: Acute Assessment and Plan: Iron studies noted. B12 level low end of normal. B12 IM once. Hgb low but stable. Continue oral b12. Follow (7) Dehydration: Code(s): E86.0 - Dehydration Status: Acute Assessment and Plan: Resolving. He is eating well. Follow Subjective Date/time seen: 06/08/22 17:02 Interval history: 27yo male with known HIV here for cough and SOB and found to have PNA with hypoxia. Feeling better. Cough productive of clear sputum. No hemoptysis. Slight chest pain with deep breathing. Up walking to the BR Exam Narrative: AF 97.2 116/83 81 18 94% room air Gen - NARD Chest - mostly clear, nml RR CV - RRR S1/S2 Abd - Soft, NT/ND, Positive BS Ext - No pedal edema Psych - Nml mood and affect Skin - Warm and dry. Objective Data Vital Signs Vital Signs: Vital Signs - 24 hr 06/07/22 19:59 06/07/22 19:59 06/07/22 20:48 Temperature 97.3 F L Pulse Rate 90 92 101 H Respiratory Rate 16 16 18 Blood Pressure 117/68 Pulse Oximetry 94 97 Oxygen Delivery Nasal Cannula Oxygen Flow Rate 2 06/07/22 20:15 06/07/22 20:00 06/08/22 01:24 Temperature Pulse Rate 92 83 Respiratory Rate 18 18 Blood Pressure Pulse Oximetry 96 Oxygen Delivery Nasal Cannula Oxygen Flow Rate 1 06/08/22 06:00 06/08/22 08:08 06/08/22 08:08 Temperature 97.2 F L Pulse Rate 81 78 Respiratory Rate 18 18 Blood Pressure 116/83 Pulse Oximetry 95 94 Oxygen Delivery Nasal Cannula Oxygen Flow Rate 2 06/08/22 08:19 06/08/22 08:00 06/08/22 13:54 Temperature Pulse Rate 84 78 Respiratory Rate 18 18 Blood Pressure Pulse Oximetry 95 Oxygen Delivery Nasal Cannula Oxygen Flow Rate 2 06/08/22 14:05 Temperature Pulse Rate 81 Respiratory Rate 18 Blood Pressure Pulse Oximetry Oxygen De
[2022-06-08 17:13] LABS: Pneumococcal Antigen Urine Not Detected (Not Detected)
[2022-06-08] MEDS: cefTRIAXone 2 GM/NS 100 ML 2 GM/100 ML BAG IVPB (20:15)
[2022-06-08 20:44] LABS: Mycoplasma IgM Antibody Titer 686 U/mL (<770)
[2022-06-09] VITALS (8 sets, daily range): BP systolic 125–133; BP diastolic 70–95; PULSE 80–92; RESP 18–20; TEMP 36.1–36.2; O2SAT 96–97
[2022-06-09 06:12] LABS: Legionella pneumophila Ag Ur Not Detected (Not Detected)
[2022-06-09] MEDS: ENOXAPARIN 40 MG/0.4 ML SYRINGE SUB-Q (08:07)
[2022-06-09] MEDS: predniSONE 20 MG TABLET 40 MG PO (08:07)
[2022-06-09] MEDS: CYANOCOBALAMIN 1,000 MCG TABLET 1000 MCG PO (08:07)
--- NOTE | 2022-06-09 10:37 | PM.DS ---
DS: Admitting Diagnosis Discharge Date 06/09/22 Admitting Diagnosis Shortness of breath and fever DS: Discharge Diagnosis Discharge Diagnosis (1) Sepsis: Code(s): A41.9 - Sepsis, unspecified organism Status: Acute (2) Multifocal pneumonia: Code(s): J18.9 - Pneumonia, unspecified organism Status: Acute (3) HIV antibody positive: Code(s): Z21 - Asymptomatic human immunodeficiency virus [HIV] infection status Status: Acute (4) Hypoxia: Code(s): R09.02 - Hypoxemia Status: Acute (5) Hyponatremia: Code(s): E87.1 - Hypo-osmolality and hyponatremia Status: Acute (6) Microcytic anemia: Code(s): D50.9 - Iron deficiency anemia, unspecified Status: Acute (7) Dehydration: Code(s): E86.0 - Dehydration Status: Acute DS: Summary Hospital Course Reason for hospitalization: 27yo male with known HIV here for cough and SOB and found to have PNA with hypoxia. Please see H&P for details. Hospital Course: Sepsis was present on admission with tachycardia, fever and hypoxia related to pneumonia.? With appropriate treatment, his sepsis symptoms resolved. The patient presented with cough, fever and shortness of breath. CTA chest showing diffuse lung disease with ground glass opacities in all lobes. Rocephin and Azithro started and completed 5 days of therapy. HIV positive so Bactrim IV added. BCx NGTD. Sputum Cx negative. Stool Cx negative. Sputum for PJP Ag negative. Repeat CXR showing clearing lung loving. He was hypoxic but able to be weaned to room air. Pulmonary was consulted and appreciate their input. Patient initially denied then later admitted that he was HIV positive.? He has diagnosed about 5 years ago and has never undergone treatment.? Hepatitis panel negative. RPR positive and confirmatory testing pending.? TB testing pending. CD4 count 9% (Nml 30-61%) with absolute CD4 122. He is classified as having AIDS and is at risk for opportunistic infections. Hyponatremia present on admission and this improved with IV fluids. Also noted to have microcytic anemia. Iron studies noted and felt related to anemia of chronic disease from untreated HIV. B12 level low end of normal. B12 IM once and stated on oral replacement. Hgb low but remained stable. He had clinical improvement. Although sputum negative for PJP, patient has HIV with CD4 count<200, symtpmatic (cough, fever, MACIAS) and with ground glass opacities in all lobes all consistent with PJP. Plan for continued treatment with Bactrim at the 10-12mg/kg/day dosing (687-824mg TMP/day). We will also continue Prednisone taper. Discharge instructions discussed at length with the patient and all questions answered. He will need to follow-up with [facility] after discharge. Status at Discharge Cognitive/behavioral status at discharge: Stable Time Spent with Patient Time attestation: Total time spent providing and/or coordinating discharge services: 40 minutes Time spent: Greater than 30 minutes Exam Narrative: AF 97.0 133/95 88 18 97% room air Gen - NARD Chest - CTA bilaterally, nml RR CV - RRR S1/S2 Abd - Soft, NT/ND, Positive BS Ext - No pedal edema Psych - Nml mood and affect Skin - Warm and dry. DS: Data Data Completed and Pending Labs on day of discharge: Labs from last 24 hours 06/09/22 06/08/22 06/05/22 10:16 19:36 06:22 HIV-1 Antibody HIV-2 Antibody HIV 1&2 Ag/Ab, 4th Gen Ur L.pneumophila Ag Not detected Mycoplasma pneumon IgM Urine Pneumococcal Ag Not detected TB Test (QFT) Gold Plus Pending TB Test (QFT) Nil Pending TB Test Mitogen - Nil Pending TB Test Ag - Nil 1 Pending TB Test Ag - Nil 2 Pending Ref Lab Test Name Pending Ref Lab Test Result Pending 06/05/22 06/04/22 01:26 18:46 HIV-1 Antibody Positive A HIV-2 Antibody Negative HIV 1&2 Ag/Ab, 4th Gen Reactive A Ur L.pneumophila Ag Mycoplasma pneumon IgM
[2022-06-10 20:17] LABS: Treponema pallidum Ab FTA ABS Reactive (Nonreactive)
== END 2022-06-09 15:50 | disposition home or self-care (01) | DRG 892 ==
LOC: ANHED 12:38 → ANH3MEDSUR 17:13
PROVIDERS: Emergency Medicine; Physician Assistant; Admitting Provider Student in an Organized Health Care Education/Training Program; Emergency Provider Emergency Medicine; Visit Provider Internal Medicine
DX: A41.9 Sepsis, unspecified organism (principal); B20 Human immunodeficiency virus [HIV] disease; J18.9 Pneumonia, unspecified organism; E87.1 Hypo-osmolality and hyponatremia; D50.9 Iron deficiency anemia, unspecified; D63.8 Anemia in other chronic diseases classified elsewhere; E86.0 Dehydration; F17.210 Nicotine dependence, cigarettes, uncomplicated; R09.02 Hypoxemia
CPT/HCPCS: 36415; 71045; 71046; 71275; 80053; 80074; 81001; 82570; 82607; 82728; 82746; 83540; 83550; 83605; 83735; 84100; 84300; 84439; 84443; 84480; 84484; 85025; 85027; 85046; 86140; 86308; 86361; 86592; 86701; 86702; 86703; 86738; 86780; 87015; 87040; 87045; 87070; 87205; 87269; 87272; 87281; 87389; 87427; 87449; 87491; 87591; 87636; 87899; 93005; 94640; 96365; 96366; 96367; 96375; 99285; A9270; G0378; G0432; J0131; J0456; J0696; J1650; J2543; J3370; J3420; J7030; J7060; J7512; Q9967